=== PATIENT | female | born 1980 | race Caucasian/White ===

== ENCOUNTER → 2017-04-17 | Outpatient (CLI) | payer OTHER ==
--- NOTE | 2017-04-17 09:49 | RAD ---
EXAM: Abdomen sonogram. HISTORY: Elevated liver enzyme laboratory values. TECHNIQUE: Sonographic imaging of the abdomen was performed. COMPARISON: None. FINDINGS: The liver is upper normal in size. There is hepatic steatosis. No focal hepatic lesion is seen. There are mobile stones within the gallbladder. The kidneys are normal in size. No solid or cystic renal lesion is seen. There is no hydronephrosis. The pancreas is partially obscured due to bowel gas. The spleen is normal in size. The aorta is normal in caliber. The inferior cava is patent. IMPRESSION: 1. Hepatic steatosis and upper normal liver size. 2. Cholelithiasis.
== END | disposition home or self-care (01) ==
LOC: US 08:42
PROVIDERS: ATTEND Nurse Practitioner Family
DX: K76.0 Fatty (change of) liver, not elsewhere classified (principal); K80.20 Calculus of gallbladder without cholecystitis without obstruction; R94.5 Abnormal results of liver function studies; L71.8 Other rosacea
CPT/HCPCS: 76700